=== PATIENT | female | born 1995 | race Caucasian/White ===

== ENCOUNTER 2019-12-16 20:16 | Emergency (ER) | payer OTHER ==
[~2019-12-16] VITALS: Ht 167.6 cm; Wt 88.0 kg
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
[2019-12-16 20:22] VITALS: BP_SYST 122
--- NOTE | 2019-12-16 20:22 | NUR ---
ER Dr. Purvis at bedside examining patient.
[2019-12-16] MEDS ORDERED: ACETAMINOPHEN/CODEINE 300 MG-30 MG TABLET PO ONE (20:30)
[2019-12-16] MEDS ORDERED: SILVER SULFADIAZINE 1%, 25 GM TOPICAL CREAM (SSD) TP ONE ×2 (20:30→20:47)
--- NOTE | 2019-12-16 20:35 | NUR ---
Pt wound cleansed with normal saline, silvadene applied to affected area. Loose bulky dressing and ice pack applied with instructions to remove q15 minutes
--- NOTE | 2019-12-16 20:46 | NUR ---
Patient given written and verbal discharge instructions and verbalizes understanding. ER MD discussed with patient the results and treatment provided. Patient in stable condition. ID arm band removed. Ice pack and loose dressing applied to injured hand. Rx of Silvadene, Tylenol 3, Tylenol given. Patient educated on pain management and to follow up with PMD. Pain Scale 4/10. Opportunity for questions provided and answered. Medication side effect fact sheet provided.
== END 2019-12-16 20:46 | disposition home or self-care (01) ==
LOC: SED 20:16
DX: T23.231A Burn of second degree of multiple right fingers (nail), not including thumb, initial encounter (principal); T31.0 Burns involving less than 10% of body surface; Z80.0 Family history of malignant neoplasm of digestive organs; X10.2XXA Contact with fats and cooking oils, initial encounter; Y93.G3 Activity, cooking and baking; Y92.89 Other specified places as the place of occurrence of the external cause; Y99.8 Other external cause status
CPT/HCPCS: 99283